=== PATIENT | male | born 1945 | race African-American/Black ===

== ENCOUNTER 2017-01-15 01:34 | Emergency (ER) | payer OTHER ==
[2017-01-15] MEDS ORDERED: ZESTRIL10 M1 PO (02:56)
[2017-01-15] MEDS ORDERED: SIMVASTATIN40 MG PO (02:56)
== END 2017-01-15 04:05 | disposition home or self-care (01) ==
LOC: CED 01:34
DX: T78.3XXA Angioneurotic edema, initial encounter (principal); I10 Essential (primary) hypertension; E78.5 Hyperlipidemia, unspecified; Z85.46 Personal history of malignant neoplasm of prostate; Z96.643 Presence of artificial hip joint, bilateral; Z79.899 Other long term (current) drug therapy; Z88.8 Allergy status to other drugs, medicaments and biological substances
CPT/HCPCS: 96374; 96375; 99283; J1200; J2930